=== PATIENT | male | born 1995 | race Native Hawaiian/Other Pacific Islander ===

== ENCOUNTER 2016-12-08 17:32 | Emergency (ER) | payer OTHER ==
[~2016-12-08] VITALS: Ht 170.2 cm; Wt 65.0 kg
[2016-12-08 17:35] VITALS: BP 132/80; PULSE 95; RESP 20; TEMP 99.4; O2SAT 100
--- NOTE | 2016-12-08 17:40 | PD ---
Physical Exam Time Seen by Provider: 17:38 Narrative 21yo M c/o PATINO, body aches, nasal congestion, sore throat, ear pain x 1 day. Denies vomiting. Patient seen in triage. VS reviewed. Awaiting bed placement. Data Data Last Documented VS Vital Signs Date Time Temp Pulse Resp B/P (MAP) Pulse Ox O2 Delivery O2 Flow Rate FiO2 12/08/16 17:35 99.4 95 20 132/80 (97) 100 Room Air MDM Supervised Visit with MARIA C: Iman Handy Dec 08, 2016 17:40
--- NOTE | 2016-12-08 17:58 | PD ---
HPI Chief Complaint: Cold / Flu Symptoms Time Seen by Provider: 17:49 Travel History International Travel<30 days: No Contact w/Intl Traveler<30days: No Traveled to known affect area: No History of Present Illness HPI 21-year-old male from [place] [facility] presents the emergency department with flulike symptoms including fever, body aches, and sore throat and ear pain since yesterday. Temperature noted to be 99.4 and triage. Patient denies abdominal pain or nausea or vomiting. No diarrhea. Flu test and strep test is sent in triage. Patient's worst complaint is the body aches and headache. Patient has a friend who has similar symptoms. Patient has no known drug allergies. PFSH Social History Alcohol Use: No Tobacco Use: No Substance Use: No Allergies-Medications (Allergen,Severity, Reaction): Coded Allergies: No Known Allergies (Unverified , 12/08/16) Reported Meds & Prescriptions Reported Meds & Active Scripts Active No Active Prescriptions or Reported Medications Review of Systems Except as stated in HPI: all other systems reviewed are Neg General / Constitutional: Positive: Fever, Chills Eyes: No: Visual changes HENT: Positive: Headaches, Sore Throat, Rhinitis, Rhinorrhea, Congestion, Earache, No: Vertigo, Lightheadedness, Nosebleed, Neck Stiffness, Neck Pain, Gingival Bleeding, Dental Difficulties, Ear Discharge Cardiovascular: No: Chest Pain or Discomfort Respiratory: No: Cough, Shortness of Breath, Wheezing Gastrointestinal: Positive: Loss of Appetite, No: Nausea, Vomiting, Diarrhea, Abdominal Pain Genitourinary: No: Dysuria Musculoskeletal: No: Pain Skin: No Rash Neurologic: No: Weakness Psychiatric: No: Depression Endocrine: No: Polydipsia Hematologic/Lymphatic: No: Easy Bruising Physical Exam Narrative GENERAL: Patient appears ill but not septic. SKIN: Warm and dry. Normal color. Normal turgor. HEAD: Atraumatic. Normocephalic. EYES: Pupils equal and round. No scleral icterus. No injection or drainage. ENT: No nasal bleeding or discharge. Mucous membranes pink and moist. Pharynx is clear. Airway is patent. Ears are clear bilaterally. NECK: Trachea midline. Supple and nontender. No significant lymphadenopathy. CARDIOVASCULAR: Regular rate and rhythm. RESPIRATORY: No accessory muscle use. Clear to auscultation. Breath sounds equal bilaterally. GASTROINTESTINAL: Abdomen soft, non-tender, nondistended. Hepatic and splenic margins not palpable. MUSCULOSKELETAL: Extremities without clubbing, cyanosis, or edema. No obvious deformities. NEUROLOGICAL: Awake and alert. No obvious cranial nerve deficits. Motor grossly within normal limits. Five out of 5 muscle strength in the arms and legs. Normal speech. PSYCHIATRIC: Appropriate mood and affect; insight and judgment normal. Data Data Last Documented VS Vital Signs Date Time Temp Pulse Resp B/P (MAP) Pulse Ox O2 Delivery O2 Flow Rate FiO2 12/08/16 17:35 99.4 95 20 132/80 (97) 100 Room Air Orders Orders Influenzae A/B Antigen (12/08/16 17:40) Group A Rapid Strep Screen (12/08/16 17:40) MDM Medical Decision Making Medical Screen Exam Complete: Yes Emergency Medical Condition: Yes Differential Diagnosis Viral syndrome. Febrile syndrome. Influenza. Pharyngitis Narrative Course Rapid influenza and strep was sent to the lab. 1855 hrs. patient is felt to have influenza although rapid influenza A is still pending. Patient is discharged home on Tamiflu 75 mg twice a day 5 days. Patient is to rest, push fluids, take Tylenol and ibuprofen as needed. Patient should not attend school for the next 5 days until fever free. School note is given. Diagnosis Primary Impression: Influenza Referrals: [facility] Patient Instructions: General Instructions Departure Forms: School Release Return to School Date: Dec 09, 2016 Please excuse from school until (free text option): Patient has influenza should not attend school for the next 5 days or until fever free for 24 hours. Med/Other Pt SpecificInfo: Prescription(s) given Scripts No Active Prescriptions or Reported Meds Disposition: DISCHARGE HOME Condition: Stable Hunter Wylie Dec 08, 2016 17:58
[2016-12-08] MEDS ORDERED: OSEL75 PO (18:57)
== END 2016-12-09 07:17 | disposition home or self-care (01) ==
LOC: NEPK 17:32
DX: J11.1 Influenza due to unidentified influenza virus with other respiratory manifestations (principal)
CPT/HCPCS: 87081; 87804; 87880; 99283

== ENCOUNTER 2017-06-02 16:41 | Emergency (ER) | payer OTHER ==
[~2017-06-02 16:41] MED LIST: OSEL75 PO
[2017-06-02 16:42] VITALS: BP 150/71; PULSE 69; RESP 16; TEMP 98.6; O2SAT 100
--- NOTE | 2017-06-02 19:09 | PD ---
HPI Chief Complaint: Abdominal Pain Time Seen by Provider: 19:03 Travel History International Travel<30 days: No Contact w/Intl Traveler<30days: No Traveled to known affect area: No History of Present Illness HPI pt has 2 days of on and off dull aching pain in his abdo RLQ with diarrhea and nausea no vomit , went to [facility] and sent to ER for further eval. Possibly they question appendicitis , pt has no sig Med and no Surgical History . He took no meds to alleviate pain . Yesterday pain was more epigastric now RLQ PFSH Past Medical History Diminished Hearing: No Seizures: Yes (3 years ago, states never before or since) Tetanus Vaccination: Unknown Influenza Vaccination: No Past Surgical History Surgical History: No Previous Surgery Social History Alcohol Use: No Tobacco Use: Yes (less than 10 cig daily) Substance Use: No Allergies-Medications (Allergen,Severity, Reaction): Coded Allergies: No Known Allergies (Unverified Adverse Reaction, Unknown, 06/02/17) Reported Meds & Prescriptions Reported Meds & Active Scripts Active Pepcid (Famotidine) 20 Mg Tab 20 Mg PO BID Reglan (Metoclopramide HCl) 10 Mg Tab 10 Mg PO QID Review of Systems Except as stated in HPI: all other systems reviewed are Neg Gastrointestinal: Positive: Nausea, Diarrhea, Abdominal Pain Physical Exam Narrative GENERAL: pt is non toxic in appearance and no active pain or vomit SKIN: Warm and dry. HEAD: Atraumatic. Normocephalic. EYES: Pupils equal and round. No scleral icterus. No injection or drainage. ENT: No nasal bleeding or discharge. Mucous membranes pink and moist. NECK: Trachea midline. No JVD. CARDIOVASCULAR: Regular rate and rhythm. RESPIRATORY: No accessory muscle use. Clear to auscultation. Breath sounds equal bilaterally. GASTROINTESTINAL: Abdomen soft, Mild RLQ pain with percussion and palpation no rebound no guarding Hepatic and splenic margins not palpable. MUSCULOSKELETAL: Extremities without clubbing, cyanosis, or edema. No obvious deformities. NEUROLOGICAL: Awake and alert. No obvious cranial nerve deficits. Motor grossly within normal limits. Five out of 5 muscle strength in the arms and legs. Normal speech. PSYCHIATRIC: Appropriate mood and affect; insight and judgment normal. Data Data Last Documented VS Orders Orders Complete Blood Count With Diff (06/02/17 19:05) Comprehensive Metabolic Panel (06/02/17 19:05) Lipase (06/02/17 19:05) Sodium Chlor 0.9% 1000 Ml Inj (Ns 1000 M (06/02/17 19:15) Ct Abd/Pel W Iv Contrast(Rout) (06/02/17 ) Oral Contrast - Adult (06/02/17 20:11) Diatrizoate Liq (Md Pabon Liq) (06/02/17 21:11) Famotidine Inj (Pepcid Inj) (06/02/17 21:30) Iohexol 350 Inj (Omnipaque 350 Inj) (06/02/17 22:33) Ed Discharge Order (06/02/17 23:24) Labs Laboratory Tests Test 06/02/17 19:18 White Blood Count 4.6 TH/MM3 Red Blood Count 5.62 MIL/MM3 Hemoglobin 16.1 GM/DL Hematocrit 45.9 % Mean Corpuscular Volume 81.6 FL Mean Corpuscular Hemoglobin 28.7 PG Mean Corpuscular Hemoglobin Concent 35.1 % Red Cell Distribution Width 13.3 % Platelet Count 177 TH/MM3 Mean Platelet Volume 9.3 FL Neutrophils (%) (Auto) 34.7 % Lymphocytes (%) (Auto) 53.2 % Monocytes (%) (Auto) 8.8 % Eosinophils (%) (Auto) 2.0 % Basophils (%) (Auto) 1.3 % Neutrophils # (Auto) 1.6 TH/MM3 Lymphocytes # (Auto) 2.4 TH/MM3 Monocytes # (Auto) 0.4 TH/MM3 Eosinophils # (Auto) 0.1 TH/MM3 Basophils # (Auto) 0.1 TH/MM3 CBC Comment DIFF FINAL Differential Comment Blood Urea Nitrogen 9 MG/DL Creatinine 0.91 MG/DL Random Glucose 85 MG/DL Total Protein 7.5 GM/DL Albumin 4.5 GM/DL Calcium Level 8.9 MG/DL Alkaline Phosphatase 75 U/L Aspartate Amino Transf (AST/SGOT) 22 U/L Alanine Aminotransferase (ALT/SGPT) 23 U/L Total Bilirubin 0.6 MG/DL Sodium Level 137 MEQ/L Potassium Level 3.4 MEQ/L Chloride Level 101 MEQ/L Carbon Dioxide Level 29.6 MEQ/L Anion Gap 6 MEQ/L Estimat Glomerular Filtration Rate 103 ML/MIN Lipase 74 U/L [facility] Medical Decision Making Medical Screen Exam Complete: Yes Emergency Medical Condition: Yes Differential Diagnosis appendicitis vs adenitis, pancreatitis GB disease other constipation viral gastroenteritis Narrative Course labs no elevation of wbc serum And CT negative no appendicitis . dx gastroenteritis reglan and pepcid Rx Diagnosis Primary Impression: Gastroenteritis Patient Instructions: Gastroenteritis (ED), General Instructions Scripts Famotidine (Pepcid) 20 Mg Tab 20 MG PO BID, #10 TAB 0 Refills Prov: Mk Sanz MD 06/02/17 Metoclopramide (Reglan) 10 Mg Tab 10 MG PO QID, #20 TAB 0 Refills Prov: Mk Sanz MD 06/02/17 Disposition: 01 DISCHARGE HOME Condition: Good Mk Sanz MD Jun 02, 2017 19:08
[2017-06-02] MEDS ORDERED: SODIUM CHLOR 0.9% 1000 ML INJ 1,000 ML IV ONE (19:15)
[2017-06-02 19:31] LABS: AUTOMATED NEUTROPHIL # 1.6 TH/MM3 (1.8-7.7); BASOPHIL # 0.1 TH/MM3 (0-0.2); BASOPHIL % 1.3 % (0.0-2.0); EOSINOPHIL # 0.1 TH/MM3 (0-0.4); HEMATOCRIT 45.9 % (39.0-51.0); HEMOGLOBIN 16.1 GM/DL (13.0-17.0); LYMPH % 53.2 % (9.0-44.0); LYMPHOCYTE # 2.4 TH/MM3 (1.0-4.8); MEAN CELL VOLUME 81.6 FL (80.0-100.0); MEAN CORPUSCULAR HEMOGLOBIN 28.7 PG (27.0-34.0); MEAN CORPUSCULAR HGB CONC 35.1 % (32.0-36.0); MEAN PLATELET VOLUME 9.3 FL (7.0-11.0); MONO % 8.8 % (0.0-8.0); MONOCYTE # 0.4 TH/MM3 (0-0.9); NEUT % 34.7 % (16.0-70.0); PLATELET COUNT 177 TH/MM3 (150-450); RED BLOOD COUNT 5.62 MIL/MM3 (4.50-5.90); RED CELL DISTRIBUTION WIDTH 13.3 % (11.6-17.2); WHITE BLOOD COUNT 4.6 TH/MM3 (4.0-11.0)
[2017-06-02 19:52] LABS: ALBUMIN 4.5 GM/DL (3.4-5.0); AST (GOT) 22 U/L (15-37); BICARBONATE 29.6 MEQ/L (21.0-32.0); BLOOD UREA NITROGEN 9 MG/DL (7-18); CALCIUM 8.9 MG/DL (8.5-10.1); CHLORIDE 101 MEQ/L (98-107); CREATININE 0.91 MG/DL (0.60-1.30); GLOMERULAR FILTRATION RATE 103 ML/MIN (>89); GLUCOSE,RANDOM 85 MG/DL (74-106); SODIUM (NA) 137 MEQ/L (136-145)
[2017-06-02 19:53] LABS: ALT (GPT) 23 U/L (12-78)
[2017-06-02 19:55] LABS: ALKALINE PHOSPHATASE 75 U/L (45-117); TOTAL BILIRUBIN ADULT 0.6 MG/DL (0.2-1.0); TOTAL PROTEIN 7.5 GM/DL (6.4-8.2)
[2017-06-02] MEDS ORDERED: DIATRIZOATE MEGLUM/DIATRIZOATE SOD 9 ML CUP ONE (21:11)
[2017-06-02 21:18] VITALS: BP 118/74; PULSE 68; RESP 16; O2SAT 99
[2017-06-02] MEDS ORDERED: FAMOTIDINE 20 MG/2 ML VIAL IV PUSH SCH (21:30)
[2017-06-02] MEDS ORDERED: IOHEXOL 350 MG/ML 10 ML VIAL (for RAD DIAG) IVCONTRAST ONE (22:33)
--- NOTE | 2017-06-02 22:47 | RADRPT ---
EXAM DATE/TIME: 06/02/2017 22:28 [place] COMPARISON: No previous studies available for comparison. INDICATIONS : Abdominal pain. IV CONTRAST: 100 cc Omnipaque 350 (iohexol) IV ORAL CONTRAST: Prescribed oral contrast ingested. RADIATION DOSE: 6.64 CTDIvol (mGy) MEDICAL HISTORY : None SURGICAL HISTORY : None. ENCOUNTER: Initial ACUITY: 1 day PAIN SCALE: 7/10 LOCATION: abdomen TECHNIQUE: Volumetric scanning of the abdomen and pelvis was performed. Using automated exposure control and ad justment of the mA and/or kV according to patient size, radiation dose was kept as low as reasonably achievable to obtain optimal diagnostic quality images. DICOM format image data is available electro nically for review and comparison. FINDINGS: LOWER LUNGS: The visualized lower lungs are clear. LIVER: Homogeneous density without lesion. There is no dilation of the biliary tree. No calcified gallston es. SPLEEN: Normal size without lesion. PANCREAS: Within normal limits. KIDNEYS: Normal in size and shape. There is no mass, stone or hydronephrosis. ADRENAL GLANDS: Within normal limits. VASCULAR: There is no aortic aneurysm. BOWEL/MESENTERY: The stomach, small bowel, and colon demonstrate no acute abnormality. Appendix is visualized and nor mal in appearance. There is no free intraperitoneal air or fluid. ABDOMINAL WALL: Within normal limits. RETROPERITONEUM: There is no lymphadenopathy. BLADDER: No wall thickening or mass. REPRODUCTIVE: Within normal limits. INGUINAL: There is no lymphadenopathy or hernia. MUSCULOSKELETAL: Within normal limits for patient age. CONCLUSION: 1. Normal appendix. 2. No acute CT abnormality in the abdomen or pelvis. Rajan Hayden MD on June 02, 2017 at 22:43 Board Certified Radiologist. This report was verified electronically.
[2017-06-02] MEDS ORDERED: REGL10TA5 PO (23:24)
[2017-06-02] MEDS ORDERED: FAMO1TAB37 PO (23:24)
== END 2017-06-02 23:40 | disposition home or self-care (01) ==
LOC: NEPE 16:41 → EDBD 16:41 → NEPE 23:40
DX: K52.9 Noninfective gastroenteritis and colitis, unspecified (principal); R56.9 Unspecified convulsions; F17.210 Nicotine dependence, cigarettes, uncomplicated
CPT/HCPCS: 74177; 80053; 83690; 85025; 96360; 99284; J7030; Q9963; Q9967